=== PATIENT | female | born 1940 | race Caucasian/White ===

== ENCOUNTER 2017-06-12 10:09 | Day surgery (SDC) | payer MEDICARE ==
[2017-06-11 10:47] VITALS: BMI 36.6
[~2017-06-12 10:09] MED LIST: LACTATED RINGERS 1,000 ML IV SCH; LIDOCAINE 1% 20 ML VIAL (10MG/ML) FOR IV START INTRADERMA PRN
[2017-06-12 10:27] VITALS: RESP 18; TEMP 97.2
[2017-06-12] MEDS ORDERED: PROPOFOL 10 MG/ML 20 ML VIAL IV ONE (11:27)
--- NOTE | 2017-06-12 11:41 | P.PCN ---
Date of Procedure: 06/12/17 Procedure(s) Performed: BRIEF HISTORY: Patient is a 76-year-old pleasant female, scheduled for an elective colonoscopy as a part of screening for colorectal neoplasia. Her last colonoscopy was 10 years ago. PROCEDURE PERFORMED: Colonoscopy. PREOPERATIVE DIAGNOSIS: Screening for colon cancer. IV sedation per Anesthesia. PROCEDURE: After informed consent was obtained, the patient, was brought into the endoscopy unit. IV sedation was administered by Anesthesia under continuous monitoring. Digital rectal examination was normal. Initially the Olympus CF- 160 flexible video colonoscope was then inserted in the rectum, gradually advanced into the cecum without any difficulty. Careful examination was performed as the scope was gradually being withdrawn. Ileocecal valve and the appendiceal orifice were visualized and appeared normal. Prep was excellent. Mucosa of the cecum, ascending colon, transverse colon, descending colon, sigmoid colon, and rectum appeared normal. Retroflexion was performed in the rectum and no lesions were seen. The patient tolerated the procedure well. IMPRESSION: Normal-appearing colon from rectum to cecum with no evidence of colitis or colorectal neoplasia. RECOMMENDATIONS: Findings of this examination were discussed with the patient as well as a family. She was advised to have a repeat screening colonoscopy in 10 years based on her overall medical condition.
[2017-06-12 12:04] VITALS: BP 146/68; PULSE 84
== END 2017-06-12 12:43 | disposition home or self-care (01) ==
LOC: ORWHC2ENDO 10:09
PROVIDERS: ATTEND Internal Medicine Gastroenterology
DX: Z12.11 Encounter for screening for malignant neoplasm of colon (principal)
CPT/HCPCS: J2704; G0121; 45378

== ENCOUNTER → 2017-06-25 | Outpatient (CLI) | payer MEDICARE ==
--- NOTE | 2017-06-25 14:37 | MM ---
Reason for exam: additional evaluation requested from prior study. Last mammogram was performed 1 year and 1 month ago. History: Patient is postmenopausal and has history of breast cancer at age 61. Family history of breast cancer in aunt at age 38. Benign right US cyst aspiration of the right breast, January 22, 2010. Reconstruction of the right breast, June 2002. Malignant mastectomy of the right breast, October 07, 2001. Excisional biopsy of the right breast. Physical Findings: Nurse did not find any significant physical abnormalities on exam. MG 3D Diag Mammo W/Cad LT CC and MLO view(s) were taken of the left breast. Prior study comparison: May 27, 2016, left breast MG 3d diag mammo w/cad LT. July 10, 2014, left breast MG diagnostic mammo LT w CAD. There are scattered fibroglandular densities. No significant new findings when compared with previous films. These results were verbally communicated with the patient and result sheet given to the patient on 06/25/17. ASSESSMENT: Negative, BI-RAD 1 RECOMMENDATION: Follow-up diagnostic mammogram of the left breast in 1 year.
--- NOTE | 2017-06-25 16:39 | BD ---
EXAMINATION TYPE: MG DEXA axial skeleton. DATE OF EXAM: 06/25/2017 COMPARISON: 08.29.2005 CLINICAL HISTORY: 76-year-old FEMALE: Z85.3 BREAST CA, Z78.0 POST MENOPAUSE W/0 HRT Height: 63.3 Weight: 211 FRAX RISK QUESTIONS: Alcohol (3 or more units per day): NO Family History (Parent hip fracture): NO Glucocorticoids (More than 3mos): NO (Ex: prednisone, prednisolone, methylprednisolone, dexamethasone, and hydrocortisone). History of Fracture in Adulthood: YES Secondary Osteoporosis: NO 1. Type 1 Diabetes: NO 2. Hyperthyroidism: NO 3. Menopause before 45: NO 4. Malnutrition: NO 5. Chronic liver disease: NO Rheumatoid Arthritis: NO Current Tobacco Use: NO RISK FACTORS HISTORY OF: LT LEG AND ANKLE AT AGE 58 YRS OLD Surgery TO LT LEG AND ANKLE, LT TKR 2013 When: AT AGE 58 AND TKR 2013 Family History of Osteoporosis: NO Active: MEDIUM Diet low in dairy products/other sources of calcium: NO Postmenopausal woman: TOTAL HYST AT 56 YRS OLD Lost more than 2 inches in height since high school: YES Hyperparathyroidism: NO Adrenal Insufficiency: NO MEDICATIONS: Additional Medications: GLYCOSAMINE CHONDROITIN, CALCIUM WITH D, OSTERARTHRITIS Additional History: HX OF RT BREAST CANCER, MASTECTOMY EXAM MEASUREMENTS: Bone mineral densitometry was performed using the [employer] System. Bone mineral density as measured about the Lumbar spine is: ----- L1-L4(G/cm2): 1.443 T Score Values are as follows: ----- L1: 1.0 ----- L2: 2.4 ----- L3: 1.9 ----- L4: 3.1 ----- L1-L4: 2.2 Bone mineral density has: Increased 4.8% since study of: 09.08.2005 Bone mineral density about the R hip (g/cm2): 1.078 Bone mineral density about the L hip (g/cm2): 1.066 T Score values are as follows: -----R Neck: -0.4 -----L Neck: -0.4 -----R Total: 0.6 -----L Total: 0.5 Bone mineral density has: Decreased -8.4% since study of: 12.19.2005 FRAX%'S: THERE IS A 11.6% CHANCE OF MAJOR OSTEOPOROTIC FX AND A 1.1% FOR A HIP FX....PROBABILITY O F FX IN 10 YRS TIME IMPRESSION: Normal (Values between +1 and -1 indicate normal bone mass). Consider repeating this study in 5 year s or sooner if there is some new clinical indication. NOTE: T-SCORE=SD OF THE YOUNG ADULT MEAN.
== END | disposition home or self-care (01) ==
LOC: RADMAMWWP 13:36
PROVIDERS: ATTEND Internal Medicine
DX: Z08 Encounter for follow-up examination after completed treatment for malignant neoplasm (principal); Z85.3 Personal history of malignant neoplasm of breast; Z78.0 Asymptomatic menopausal state
CPT/HCPCS: 77080; G0206; G0279

== ENCOUNTER → 2018-07-01 | Outpatient (CLI) | payer MEDICARE ==
--- NOTE | 2018-07-02 07:40 | MM ---
Reason for exam: additional evaluation requested from prior study. Last mammogram was performed 1 year ago. History: Patient is postmenopausal and has history of breast cancer at age 61. Family history of breast cancer in aunt at age 38. Benign right US cyst aspiration of the right breast, January 22, 2010. Reconstruction of the right breast, June 2002. Malignant mastectomy of the right breast, October 07, 2001. Excisional biopsy of the right breast. Physical Findings: Nurse did not find any significant physical abnormalities on exam. MG 3D Diag Mammo W/Cad LT CC and MLO view(s) were taken of the left breast. Prior study comparison: June 25, 2017, left breast MG 3d diag mammo w/cad LT. May 27, 2016, left breast MG 3d diag mammo w/cad LT. The breast tissue is heterogeneously dense. This may lower the sensitivity of mammography. Finding: There are typically benign vascular calcifications in the left breast. There is no discrete abnormality. These results were verbally communicated with the patient and result sheet given to the patient on 07/01/18. ASSESSMENT: Incomplete: need additional imaging evaluation, BI-RAD 0 RECOMMENDATION: Ultrasound of the left breast. (palpable)
--- NOTE | 2018-07-02 07:44 | USB ---
Reason for exam: additional evaluation requested from abnormal screening. History: Patient is postmenopausal and has history of breast cancer at age 61. Family history of breast cancer in aunt at age 38. Benign right US cyst aspiration of the right breast, January 22, 2010. Reconstruction of the right breast, June 2002. Malignant mastectomy of the right breast, October 07, 2001. Excisional biopsy of the right breast. US Breast Limited LT Left limited breast ultrasound including focal area of concern, retroareolar and axilla demonstrates a 1.0 x 0.4 x 1.3cm oval, solid, hyperechoic lesion at 4 o'clock, suspect lipoma. No change from 2010. These results were verbally communicated with the patient and result sheet given to the patient on 07/01/18. ASSESSMENT: Benign, BI-RAD 2 RECOMMENDATION: Routine screening mammogram of the left breast in 1 year.
== END | disposition home or self-care (01) ==
LOC: RADMAMWWP 14:26
PROVIDERS: ATTEND Internal Medicine
DX: R92.8 Other abnormal and inconclusive findings on diagnostic imaging of breast (principal); Z90.11 Acquired absence of right breast and nipple; Z85.3 Personal history of malignant neoplasm of breast
CPT/HCPCS: 77065; 76642; G0279; 77061

== ENCOUNTER → 2018-08-16 | Outpatient (CLI) | payer MEDICARE ==
--- NOTE | 2018-08-16 15:09 | XR ---
EXAMINATION TYPE: XR bone survey complete DATE OF EXAM: 08/16/2018 COMPARISON: NONE HISTORY: Monoclonal gammopathy TECHNIQUE: Whole body bone survey was completed. FINDINGS: Chest: Surgical clip overlies the right hemidiaphragm. No focal consolidation, pleural effusion or pn eumothorax is seen. Cardiomediastinal silhouette is within normal limits. Osseous structures appear i ntact. Bony calvarium : 2 views of the bony calvarium demonstrate. Numerous small probable arachnoid granula tions are seen in addition to for larger lucent lesions measuring up to 4 mm on the frontal view. Spine: Two views of the cervical, thoracic and lumbar spines are submitted. There is grade 1 anterol isthesis of C4 on C5 and moderate to severe degenerative change throughout the cervical spine demonst rated as anterior osteophytes, intervertebral disc space narrowing, uncovertebral hypertrophy and end plate sclerosis. No suspicious osseous lesion is seen. The lumbar spine demonstrates a mild levoscoli otic curvature and moderate multilevel degenerative disc disease. There is grade 1 anterolisthesis of L3 on L4. Multilevel facet arthropathy is noted. The thoracic spine demonstrates mild multilevel deg enerative disc disease with no suspicious osseous lesion or malalignment. PELVIS: Single view of the pelvis demonstrates no suspicious osseous lesion. Mild femoral acetabular arthropathy and sacroiliac joint sclerosis are noted. UPPER EXTREMITIES: Two views of the upper extremities. No suspicious osseous lesion. LOWER EXTREMITIES: 2 views of the lower extremities. Extensive tricompartmental arthropathy is seen of the right knee with left knee arthroplasty. IMPRESSION: 4 lucent lesions within the calvarium that may represent lytic lesions of myeloma or prom inent arachnoid granulations. CT could further assess these findings. No other suspicious lesions are seen throughout the whole body bone survey. Degenerative disc disease and arthropathy as described a rupinder.
== END | disposition home or self-care (01) ==
LOC: RADXRMAIN 13:32
PROVIDERS: ATTEND Internal Medicine Hematology & Oncology
DX: D47.2 Monoclonal gammopathy (principal); M89.9 Disorder of bone, unspecified; M12.9 Arthropathy, unspecified
CPT/HCPCS: 77075

== ENCOUNTER → 2020-08-10 | Outpatient (CLI) | payer MEDICARE ==
--- NOTE | 2020-08-13 08:26 | MM ---
Reason for exam: additional evaluation requested from prior study. Last mammogram was performed 2 years and 1 month ago. History: Patient is postmenopausal and has history of breast cancer at age 61. Family history of breast cancer in aunt at age 38. Benign right US cyst aspiration of the right breast, January 22, 2010. Reconstruction of the right breast, June 2002. Malignant mastectomy of the right breast, October 07, 2001. Excisional biopsy of the right breast. Physical Findings: Nurse Summary: nodule in the left breast at 3 o'clock (nurse ms). MG 3D Diag Mammo W/Cad LT CC and MLO view(s) were taken of the left breast. Prior study comparison: July 01, 2018, left breast MG 3d diag mammo w/cad LT. June 25, 2017, left breast MG 3d diag mammo w/cad LT. There are scattered fibroglandular densities. No significant new findings when compared with previous films. These results were verbally communicated with the patient and result sheet given to the patient on 08/10/20. ASSESSMENT: Benign, BI-RAD 2 RECOMMENDATION: Follow-up diagnostic mammogram of the left breast in 1 year.
== END | disposition home or self-care (01) ==
LOC: RADMAMWWP 14:47
PROVIDERS: ATTEND Internal Medicine
DX: Z08 Encounter for follow-up examination after completed treatment for malignant neoplasm (principal); Z85.3 Personal history of malignant neoplasm of breast
CPT/HCPCS: 77065; G0279; 77061

== ENCOUNTER → 2022-09-29 | Outpatient (CLI) | payer MEDICARE ==
--- NOTE | 2022-09-30 08:30 | MM ---
Reason for Exam: Hx of breast cancer, mastectomy. Last mammogram was performed 2 year(s) and 2 month(s) ago. Patient History: Menarche at age 13. First Full-Term at age 23. Left ovary removed at age 60. Right ovary removed at age 60. Hysterectomy at age 60. Postmenopausal. Patient has history of breast feeding. Breast cancer, right, age 61. Excisional Biopsy on the Right side. 01/22/2010, Benign Cyst Aspiration on the right side. 10/07/2001, Malignant Mastectomy on the right side. 06/2002, Implant on the right side. Maternal aunt had breast cancer, age 38. Prior Study Comparison: 06/25/2017 Left Diagnostic Mammogram, [facility]. 07/01/2018 Left Diagnostic Mammogram, [facility]. 08/10/2020 Left Diagnostic Mammogram, [facility]. Tissue Density: Left: There are scattered fibroglandular densities. Findings: There is no suspicious group of microcalcifications or new suspicious mass. Benign calcifications within the left breast. Overall Assessment: Benign, BI-RAD 2 Management: Screening Mammogram of the left breast in 1 year. A clinical breast exam by your physician is recommended on an annual basis and results should be correlated with mammographic findings. Electronically signed and approved by: Peter Reeves D.O.
== END | disposition home or self-care (01) ==
LOC: RADMAMWWP 13:28
PROVIDERS: ATTEND Family Medicine
DX: Z12.31 Encounter for screening mammogram for malignant neoplasm of breast (principal); Z78.0 Asymptomatic menopausal state; Z80.3 Family history of malignant neoplasm of breast; Z85.3 Personal history of malignant neoplasm of breast
CPT/HCPCS: 77067

== ENCOUNTER → 2022-12-05 | Outpatient (CLI) | payer MEDICARE ==
--- NOTE | 2022-12-05 11:23 | CA ---
Stress Echo Report Candelaria Eden Age: 82 Gender: F : 1940 Exam Date: 12/05/2022 09:39 Exam Location: [facility] Ht (in): 65 Wt (lb): 210 Ordering Physician: Andrew Stoddard MD Referring Physician: Andrew Stoddard MD Data Processing Equipment Repairer: Rosie Bridges RDCS Technologist Procedure CPT: Indication: R06.02 SOB ICD-9 Codes: Rhythm: Patient History: No history of any symptoms Cardiac Medications: Vitamins, glucosamine Medications in past 24 hours: Contrast: Stress Results Protocol: Alfredo Total dose(mL): Exercise Duration (min:sec): Max ST Depression (mm): Angina Score: Gomez Score: METS: 2.8 Resting HR: 101 Resting BP: 153 / 80 Peak HR: 142 Peak BP: 227 / 102 Max Predicted HR: 140 101 % Max Predicted HR Target HR: 119 Double Product: [id number] Stress Summary: BP Response: Reason for Termination: Max HR Cardiac Symptoms: ECG Analysis Resting ECG: Stress ECG: Arrhythmia: Echo Analysis Resting Echo: Peak Echo Analysis: MEASUREMENTS (Male/Female) Normal Values CONCLUSIONS Limited functional capacity Normal EKG and echo in the response to exercise Dr. Mina Alarcon MD (Electronically Signed) Final Date: 05 December 2022 11:22
== END | disposition home or self-care (01) ==
LOC: RADNMMAIN 09:12
PROVIDERS: ATTEND Family Medicine
DX: Z01.818 Encounter for other preprocedural examination (principal); M16.12 Unilateral primary osteoarthritis, left hip; R06.02 Shortness of breath
CPT/HCPCS: 93351

== ENCOUNTER → 2022-12-18 | Outpatient (CLI) | payer MEDICARE ==
[2022-12-18 13:35] LABS: INR 0.9 (<1.2); Partial Thromboplastin Time 22.8 sec (22.0-30.0); Prothrombin Time 9.9 sec (9.0-12.0)
[2022-12-18 23:41] LABS: Appearance,Urine Turbid (Clear); Bacteria,Urine None Seen /HPF (None Seen); Bilirubin,Urine Negative (Negative); Blood,Urine Negative (Negative); Color,Urine Yellow (Yellow); Ketones,Urine Negative (Negative); Nitrite,Urine Negative (Negative); PH, Urine 5.5 (5.0-8.0); Urobilinogen,Urine 0.2 (0.2,1.0)
[2022-12-19 00:07] LABS: African American GFR (CKD) 96.4 (60.0-200.0); Albumin 4.3 g/dL (3.8-4.9); Albumin/Globulin Ratio 1.1 (1.60-3.17); Anion Gap 10.2 mmol/L (10.00-18.00); BUN/Creat Ratio 16.52 Ratio (12.00-20.00); Calcium 10.1 mg/dL (8.7-10.3); Carbon Dioxide 27.3 mmol/L (20.0-27.5); Globulin 3.9 g/dL (1.6-3.3); Non-African American GFR(CKD) 83.2 (60.0-200.0); Potassium 4.2 mmol/L (3.5-5.5); Total Bilirubin 0.5 mg/dL (0.30-1.20); Total Protein 8.3 g/dL (6.2-8.2)
[2022-12-19 01:30] LABS: HCT 39.6 % (37.2-46.3); HGB 12.3 g/dL (12.0-15.0); MCH 27.7 pg (27.0-32.0); MCHC 31.1 g/dL (32.0-37.0); MCV 89.2 fL (80.0-97.0); Mean Platelet Volume 10.9 fL (9.5-12.2); NRBC Per 100 WBC 0 /100 WBCS (0.0-0.0); Platelet Count 206 X 10*3/uL (140-440); RBC 4.44 X 10*6/uL (4.10-5.20); RDW 14.4 % (11.5-14.5); WBC 4.58 X 10*3/uL (4.50-10.00)
== END | disposition home or self-care (01) ==
LOC: LABPAT 11:59
PROVIDERS: ATTEND Orthopaedic Surgery
DX: Z01.812 Encounter for preprocedural laboratory examination (principal); M16.12 Unilateral primary osteoarthritis, left hip
CPT/HCPCS: 36415; 80053; 81001; 85027; 85610; 85730; 87070

== ENCOUNTER 2022-12-22 05:36 | Day surgery (SDC) | payer MEDICARE ==
[2022-12-18 10:17] VITALS: BMI 34.9
[~2022-12-22 05:36] MED LIST changes: +ACETAMINOPHEN TAB 500 MG TAB PO PRN; +GABAPENTIN 300 MG CAP PO PRN; -LACTATED RINGERS 1,000 ML IV SCH; -LIDOCAINE 1% 20 ML VIAL (10MG/ML) FOR IV START INTRADERMA PRN; +MELOXICAM 7.5 MG TAB PO PRN; +TRANEXAMIC ACID IN NACL,ISO-OS 1,000 MG in SALINE 1 100ML.BAG IVPB PRN
[2022-12-22] MEDS ORDERED: DEXAMETHASONE SOD PHOSPHATE 4 MG/ML 1 ML VIAL IV ONE (05:53)
[2022-12-22] MEDS ORDERED: ONDANSETRON 4 MG/2 ML VIAL IVP ONE (05:53)
[2022-12-22] MEDS ORDERED: MIDAZOLAM 2 MG/2 ML VIAL IV PRN (05:53)
[2022-12-22] MEDS: LACTATED RINGERS 1,000 ML IV SCH (06:24)
[2022-12-22] MEDS ORDERED: MIDAZOLAM 2 MG/2 ML VIAL IVP ONE (06:50)
[2022-12-22] MEDS ORDERED: MIDAZOLAM 2 MG/2 ML VIAL ONE (06:55)
[2022-12-22] MEDS ORDERED: fentaNYL (PF) 50 MCG/ML 2 ML AMP ONE (06:55)
[2022-12-22] MEDS ORDERED: PHENYLEPHRINE-0.9% NACL SYG 1,000 MCG/10 ML SYRINGE ONE (06:55)
[2022-12-22] MEDS ORDERED: ROPIVACAINE 5 MG/ML 30 ML VIAL ONE (06:55)
[2022-12-22] MEDS ORDERED: PROPOFOL 10 MG/ML 20 ML VIAL IV ONE (06:55)
[2022-12-22] MEDS ORDERED: ceFAZolin 1,000 MG in SODIUM CHLORIDE 0.9% 1,000 ML IRRIGATION ONE (06:59)
[2022-12-22] MEDS ORDERED: HYDROmorphone 0.5 MG/0.5 ML SYRINGE IVP PRN ×4 (07:00→08:33)
[2022-12-22] MEDS ORDERED: ROPIVACAINE 5 MG/ML 30 ML VIAL MISCELLANE ONE ×2 (07:24→08:00)
--- NOTE | 2022-12-22 08:07 | P.OP ---
Date of Procedure: 12/22/22 Preoperative Diagnosis: Severe osteoarthritis left hip Postoperative Diagnosis: Severe osteoarthritis left hip Procedure(s) Performed: Left total hip arthroplasty with a direct anterior approach Implants: [employer] Polarstem standard size 3 with a collar [employer] R3, 3 hole hemispherical acetabular shell, 52 mm [employer] Reflection 6.5 mm cancellus screw, 20 mm 2 [employer] R3, XLPE 20 acetabular liner [employer] Oxinium femoral head 36 m, +0 All components were press-fit. The articulation is Oxinium on polyethylene. Anesthesia: spinal Surgeon: Regino Sharma Site Technician #1: Kimberly Duong Estimated Blood Loss (ml): 350 Pathology: other (Femoral head) Condition: stable Disposition: PACU Indications for Procedure: After failure of conservative treatment we discussed the surgical and nonsurgical treatment options at length. Patient wishes to proceed with a total hip arthroplasty with a direct anterior approach. Complications specific to this procedure were discussed at length, including but not limited to infection, leg length discrepancy, dislocation, nerve injury, and fracture. Covid-19 was also discussed at length with the patient, and they are aware of the current sunny icies and procedures. The patient was given the option of delaying surgery, but they elect to proceed knowing these risks. Patient is aware of all these complications and informed consent was obtained Operative Findings: The operative findings are consistent with severe osteoarthritis of the left hip Description of Procedure: The patient was seen and evaluated in the preoperative area and the consent was reviewed. The operative site was marked with a skin marker. The patient verified the procedure and operative site. A SILVIA block was placed by anesthesia in the preoperative area. The patient was then brought to the operating room and given preoperative antibiotics intravenously. 1 g of Tranexamic acid was also given intravenously. A spinal anesthetic was administered by the anesthesia department. The patient was then placed on the [place] table with the bony prominences well-padded. The hip area was then prepped with a ChloraPrep solution and draped in the usual sterile fashion. A universal timeout was then performed, which confirmed the patient's name, surgical site, ALLERGIES, and procedure being performed on the consent. Next the incision site was located at 1 cm distal and 4 cm lateral to the anterior superior iliac spine. The skin and subcutaneous tissues were sharply incised. Incision was carefully dissected down to the fascia overlying the tensor fascia wilfrido muscle. This fascia was then incised in line with the muscle fibers. Care was taken to stay laterally in order to avoid injuring the lateral femoral cutaneous nerve. Next, using blunt finger dissection, the tensor fascia wilfrido muscle was dissected off its investing fascia. The muscle was then carefully retracted laterally with a cobra retractor over the lateral neck of the femur. Next, the circumflex vessels were identified and cauterized using the Aquamantis device. The anterior hip capsule was then exposed. The capsule was then opened and an inverted T fashion. The retractors were then placed intracapsularly. The retractors were maintained intracapsular throughout the procedure. The proximal femur was then visualized. Fluoroscopic x-rays were then taken in order to evaluate the preoperative leg lengths. A small amount of traction was placed on the leg. The femoral neck was then osteotomized at the appropriate level above the lesser trochanter. A small wedge of bone was then removed from the remaining femoral head. Next, using a corkscrew the femoral head was removed from the acetabulum. On gross visual inspection, the femoral head had complete loss of articular cartilage and multiple periarticular osteophytes. The femoral head was then measured. Attention was then turned to the acetabulum. The acetabulum was exposed and any remaining labrum was excised. Sequential reaming of the acetabulum was performed using fluoroscopic guidance until there was a good bed of bleeding cancellus bone. When the appropriate size was reached, a trial was then placed. The position and fit of the trial was checked with fluoroscopy. The trial was then removed. Then, using fluoroscopic guidance, the final implant was impacted at 20 of anteversion and 40 of abduction, and fully seated in the acetabulum. 2 screws were then placed in the acetabulum. Again fluoroscopy was used to check position of the screws. Next, the liner was then impacted, with a 20 elevated liner located in the anterior superior quadrant. Component locking was confirmed. Attention was then directed to the femur. With the aid of the [place] table, the femur was externally rotated to approximately 130, extended, and adducted under the opposite leg. A side hook was then placed under the proximal femur, and the side hook elevator was used to elevate the proximal femur while releasing the capsule. Retractors were then placed. A capsular release was performed, as well as a release of the conjoined tendon, which afforded excellent visualization of the proximal femur. Next, a box osteotome was used to lateralize the proximal femur. A pet handler was then used to locate the femoral canal. Sequential broaching was then performed with appropriate size which afforded excellent fixation in the proximal femur. A trial was then placed with appropriate head and neck, and the hip was gently reduced with the aid of the [place] table. Fluoroscopy was then used to check position of the components, as well as to evaluate the leg lengths and offset. The leg lengths and offset were measured as closely as possible to ensure stability of the hip. The hip was then gently dislocated and the trials were then removed. Final implants were then impacted and the hip was again reduced. Final fluoroscopic x-rays confirmed that the components were in anatomic position. The leg lengths and offset were measured and were found to coincide with the trial measurements. The hip was also taken through range of motion, and found to be stable. The hip was then copiously irrigated with antibiotic solution with pulsatile lavage. The hip was then irrigated with Irrisept solution. The soft tissues were then injected with a ropivacaine solution. A second dose of 1 g of Tranexamic acid was also given intravenously. The fascia was then closed with 2-0 strata fix suture. The subcutaneous tissue was closed with 3-0 Vicryl. The subcuticular tissue was closed with 3-0 strata fix suture. The skin was then closed with Exofin skin glue. After the glue and dried, and Optifoam silver impregnated dressing was applied. The patient was then transferred to the recovery room in stable condition. The chiropractic assistant GEETA Batres was required due to the complexity of surgery, and the need for skilled surgical nurse practitioner for positioning, draping, exposure, retraction, and closure of the wound.
[2022-12-22] MEDS ORDERED: LACTATED RINGERS 1,000 ML IV ONE (08:10)
[2022-12-22] MEDS ORDERED: NALOXONE 0.4 MG/ML 1 ML VIAL IV PRN (08:33)
[2022-12-22] MEDS ORDERED: MAGNESIUM HYDROXIDE 2,400 MG/10 ML CUP PO PRN (08:33)
[2022-12-22] MEDS ORDERED: ONDANSETRON 4 MG/2 ML VIAL IVP PRN (08:33)
[2022-12-22] MEDS ORDERED: HYDROcodone/APAP 7.5-325MG 1 EACH TAB PO PRN (08:35)
--- NOTE | 2022-12-22 09:05 | XR ---
EXAMINATION TYPE: XR Hip Limited LT DATE OF EXAM: 12/22/2022 COMPARISON: None HISTORY: Left hip prosthesis TECHNIQUE: AP left hip FINDINGS: Left hip prosthesis in place. Acetabular component is present. Postsurgical changes are wit hin the soft tissues. No acute osseous abnormality is evident. IMPRESSION: 1. No acute fractures. Left hip replacement
--- NOTE | 2022-12-22 09:08 | XR ---
Fluoroscopy INDICATION: Pain FINDINGS: Fluoroscopy time: 36 seconds. DAP: 2.0612 mGycm^2 Images obtained: 3. IMPRESSIONS: 1. Documentation of fluoroscopy.
[2022-12-22] MEDS ORDERED: SODIUM CHLORIDE 0.9% 1,000 ML IV ONE (11:56)
--- NOTE | 2022-12-22 13:24 | P.ANPRN ---
Procedure Note - Anesthesia - Nerve Block Performed Left Robert Single Time Out Performed: Yes ([id number]) Date of Procedure: 12/22/22 Procedure Start Time: 06:51 Procedure Stop Time: 06:57 Location of Patient: PreOp Indication: Acute Post-Operative Pain, Requested by Surgeon Specifically requested for management of pain by DrDarrell: Regino Sharma Sedation Type: Sedate with meaningful contact maintained Preparation: Sterile Prep Position: Supine Catheter: None Needle Types: Pajunk Needle Gauge: 21 Ultrasound used to visualize needle placement: Yes Ultrasound used to observe medication spread: Yes Injectate: 0.5% Ropivacaine (see comment for volume) (30cc) Blood Aspirated: No Pain Paresthesia on Injection Noted: No Resistance on Injection: Normal Image Stored and Saved: Yes Events: Uneventful and Well Tolerated
[2022-12-22] MEDS: ASPIRIN 325 MG TAB PO SCH ×2 (15:02→22:03)
--- NOTE | 2022-12-22 17:51 | P.CONS ---
History of Present Illness - Reason for Consult Consult date: 12/22/22 - History of Present Illness Patient is a 82-year-old female with no significant past medical history presenting for elective left total hip arthroplasty. [facility] [place] [facility] has been consulted for medical management. Currently patient denies any chest pain, shortness of breath, abdominal pain, nausea, vomiting, diarrhea, constipation, or urinary complaints. Currently she is afebrile, pulse 92, respiratory rate 16, blood pressure 141/69, saturating at 94% on room air. No recent labs available. Pertinent positives and negatives as discussed in HPI, a complete review of systems was performed and all other systems are negative. Patient seen and examined at bedside. Vital signs reviewed General: nontoxic, no distress, appears at stated age Derm: warm, dry, dressing dry, clean, and intact Head: atraumatic, normocephalic, symmetric Eyes: EOMI, no lid lag, anicteric sclera, pupils equal round reactive to light ENT: Nose and ears atraumatic Neck: No thyromegaly, supple Mouth: no lip lesion, mucus membranes moist Cardiovascular: S1S2 reg, no murmur, no edema Lungs: clear to auscultation bilateral, no rhonchi, no rales, no wheeze, no accessory muscle use Abdominal: soft, nontender to palpation, no guarding, no appreciable organomegaly Ext: no gross muscle atrophy, muscle strength muscle strength 5 out of 5 in all 4 extremities, no contractures Neuro: CN II-XII grossly intact Psych: Alert, oriented, appropriate affect Assessment/Plan: Hip Osteoarthritis status post left total hip arthroplasty -Currently on oral norco, and IV Dilaudid for pain control -Aspirin 325 twice a day for DVT prophylaxis -PT/OT -CBC and CMP ordered for tomorrow to monitor for any blood loss, and electrolytes following surgery Thank you for allowing us to participate in the care of this pleasant patient. Do not hesitate to contact us with questions. Someone can be reached from the [facility] [place] [facility] hospitalist group all hours of the day at [phone] or via [employer]. Past Medical History Past Medical History: Cancer Additional Past Medical History / Comment(s): BREAST CA 2001. History of Any Multi-Drug Resistant Organisms: None Reported Past Surgical History: Breast Surgery, Hysterectomy, Joint Replacement Additional Past Surgical History / Comment(s): lt knee replacement, bilateral mastectomy with reconstruction. plate in lt lower leg and ankle and rebuild ankle Past Anesthesia/Blood Transfusion Reactions: No Reported Reaction Past Psychological History: No Psychological Hx Reported Smoking Status: Never smoker Past Alcohol Use History: None Reported Past Drug Use History: None Reported - Past Family History Sister(s) Family Medical History: Cancer Daughter(s) Family Medical History: Cancer Mother Family Medical History: Cancer Additional Family Medical History / Comment(s): Mother lived till 99 years old, with hx throat cancer. Medications and Allergies Home Medications Medication Instructions Recorded Confirmed Type Co Q-10 (Unknown Dose) 1 tab PO DAILY 12/18/22 12/18/22 History Multivitamins, Thera [Multivitamin 1 tab PO DAILY 12/18/22 12/18/22 History (formulary)] [place]-3/Dha/Epa/Fish Oil [Fish Oil 1 each PO DAILY 12/18/22 12/18/22 History 1,000 mg Softgel] Vit C/E/Zn/Coppr/Lutein/Zeaxan 1 each PO DAILY 12/18/22 12/18/22 History [Preservision Areds 2 Softgel] Vitamin E (Unknown Dose) 1 tab PO DAILY 12/18/22 12/18/22 History Aspirin 325 mg PO BID #60 tab 12/22/22 Rx HYDROcodone/APAP 7.5-325MG [[place] 1 - 2 tab PO Q6H PRN #32 tab 12/22/22 Rx 7.5-325] Sennosides [Senokot] 2 tab PO DAILY PRN #60 tablet 12/22/22 Rx Allergies Allergy/AdvReac Type Severity Reaction Status Date / Time No Known Allergies Allergy Verified 12/22/22 05:56 Physical Exam Vitals: Vital Signs Temp Pulse Pulse Resp BP Pulse Ox 12/22/22 17:41 97.8 F 81 18 163/68 97 12/22/22 14:22 92 16 141/69 94 L 12/22/22 12:45 77 16 134/64 96 12/22/22 11:45 81 16 140/66 94 L 12/22/22 10:45 85 16 133/64 96 12/22/22 10:15 84 16 143/62 98 12/22/22 09:45 74 16 122/68 98 12/22/22 09:30 64 16 123/62 97 12/22/22 09:15 65 16 121/63 97 12/22/22 09:00 68 16 119/61 97 12/22/22 08:45 71 16 101/54 100 12/22/22 08:29 97 F L 81 16 101/53 98 12/22/22 07:00 85 16 98 12/22/22 05:57 98.3 F 94 16 168/79 96 Intake and Output 12/22/22 12/22/22 12/22/22 06:59 14:59 22:59 Intake Total 1051 1000 Output Total 350 Balance 1051 650 Intake: IV 1051 1000 Output: Estimated Blood Loss 350 Other: Weight 93.8 kg
[2022-12-22] MEDS: SODIUM CHLORIDE 0.9% 1,000 ML IV SCH ×2 (18:17→23:17)
[2022-12-22] MEDS ORDERED: SENNOSIDES-DOCUSATE SODIUM 1 EACH TAB PO SCH (21:00)
[2022-12-22] MEDS: HYDROcodone/APAP 7.5-325MG 1 EACH TAB PO PRN (22:03)
[2022-12-23 08:26] VITALS: BP 122/67; PULSE 97; TEMP 97.5
--- NOTE | 2022-12-23 08:37 | P.DS ---
Providers Expected date of discharge: 12/23/22 Attending physician: Regino Sharma Consults: 12/22/22 16:47 Consult Physician Routine Consulting Provider: Felicita Garcia Consult Reason/Comments: Medical management Do you want consulting provider notified?: Yes Primary care physician: Andrew Stoddard MD - Discharge Diagnosis(es) (1) Osteoarthritis of left hip Current Visit: Yes Status: Acute (2) S/P total hip arthroplasty Current Visit: Yes Status: Acute Hospital Course: This is a 82-year-old female with known history of degenerative arthritis of the left hip. The patient presented for evaluation as an outpatient. After discussion and consideration patient elects to proceed with total hip arthroplasty. The patient is seen preoperatively by Dr. Sharma and medically cleared for surgery by their primary care physician. Patient is admitted to [facility] on 12/22/2022 for total hip arthroplasty. The procedure is performed without complication or sequelae. The patient is doing well postoperatively. Labs and vital signs are stable on day of discharge. On day of discharge patient's hip incision is healing well. There is minimal erythema. There is no drainage noted at this time. There is minimal soft tissue swelling to the hip and thigh. Patient has full foot and ankle motion without difficulty or pain. Calf is soft and nontender to palpation. Neurovascular status to the left lower extremity is intact. Patient is discharged home in good condition. Please see med rec for accurate list of home medications. Plan - Discharge Summary Discharge Rx Participant: No New Discharge Prescriptions: New HYDROcodone/APAP 7.5-325MG [[place] 7.5-325] 1 - 2 tab PO Q6H PRN #32 tab PRN Reason: Pain Sennosides [Senokot] 2 tab PO DAILY PRN #60 tablet PRN Reason: Constipation Aspirin 325 mg PO BID #60 tab No Action Vit C/E/Zn/Coppr/Lutein/Zeaxan [Preservision Areds 2 Softgel] 1 each PO DAILY Vitamin E (Unknown Dose) 1 tab PO DAILY Multivitamins, Thera [Multivitamin (formulary)] 1 tab PO DAILY [place]-3/Dha/Epa/Fish Oil [Fish Oil 1,000 mg Softgel] 1 each PO DAILY Co Q-10 (Unknown Dose) 1 tab PO DAILY Discharge Medication List Co Q-10 (Unknown Dose) 1 tab PO DAILY 12/18/22 [History] Multivitamins, Thera [Multivitamin (formulary)] 1 tab PO DAILY 12/18/22 [History] [place]-3/Dha/Epa/Fish Oil [Fish Oil 1,000 mg Softgel] 1 each PO DAILY 12/18/22 [History] Vit C/E/Zn/Coppr/Lutein/Zeaxan [Preservision Areds 2 Softgel] 1 each PO DAILY 12/18/22 [History] Vitamin E (Unknown Dose) 1 tab PO DAILY 12/18/22 [History] Aspirin 325 mg PO BID #60 tab 12/22/22 [Rx] HYDROcodone/APAP 7.5-325MG [[place] 7.5-325] 1 - 2 tab PO Q6H PRN #32 tab 12/22/22 [Rx] Sennosides [Senokot] 2 tab PO DAILY PRN #60 tablet 12/22/22 [Rx] Follow up Appointment(s)/Referral(s): Regino Sharma DO [Doctor of Osteopathic Medicine] - 2 Weeks Activity/Diet/Wound Care/Special Instructions: Weightbearing as tolerated with walker. Leave dressing intact. Dressing may be removed by home care nurse or by patient in 7 days. Then change dressing twice daily until follow up. May shower with initial dressing intact and after removal. If dressing become saturated, please remove. Please take aspirin 325mg twice daily for 30 days to prevent blood clots. Recommend use of compression stockings daily until follow up to help prevent swelling and blood clots. May remove at night before sleeping. Please follow-up with [facility] in 2 weeks and call with any questions or concerns, . Discharge Disposition: HOME WITH HOME HEALTH SERVICES
[2022-12-23] MEDS: LACTATED RINGERS 1,000 ML IV SCH (08:52)
[2022-12-23] MEDS ORDERED: NON FORMULARY DRUG (Omega-3/Dha/Epa/Fish Oil [Fish Oil 1,000 Mg Softgel] 1 EACH Capsule) PO SCH (09:00)
[2022-12-23] MEDS ORDERED: MULTIVITAMINS, THERA 1 EACH TAB PO SCH (09:00)
[2022-12-23] MEDS: ASPIRIN 325 MG TAB PO SCH (10:16)
[2022-12-23] MEDS: HYDROcodone/APAP 7.5-325MG 1 EACH TAB PO PRN (10:16)
--- NOTE | 2022-12-23 10:37 | P.PN ---
Subjective Progress Note Date: 12/23/22 Subjective: Patient seen and examined at bedside. No acute events overnight. She has minimal pain and her left hip, but denies any other complaints. She is able to ambulate on her own. Pertinent positives and negatives as discussed above, a complete review of systems was performed and all other systems are negative. Vitals Signs Reviewed. General: nontoxic, no distress, appears at stated age Derm: warm, dry, dressing dry, clean, and intact Head: atraumatic, normocephalic, symmetric Eyes: EOMI, no lid lag, anicteric sclera, pupils equal round reactive to light ENT: Nose and ears atraumatic Neck: No thyromegaly, supple Mouth: no lip lesion, mucus membranes moist Cardiovascular: S1S2 reg, no murmur, no edema Lungs: clear to auscultation bilateral, no rhonchi, no rales, no wheeze, no accessory muscle use Abdominal: soft, nontender to palpation, no guarding, no appreciable organomegaly Ext: no gross muscle atrophy, muscle strength muscle strength 5 out of 5 in all 4 extremities, no contractures Neuro: CN II-XII grossly intact Psych: Alert, oriented, appropriate affect Data Reviewed Today: Temperature this morning was 97.5, blood pressure 122/67, saturating at 97% on room air, respiratory rate 17, pulse 97 CBC and CMP pending, will be reviewed when available Assessment and Plan: Hip Osteoarthritis status post left total hip arthroplasty -Currently on oral norco, and IV Dilaudid for pain control -Aspirin 325 twice a day for DVT prophylaxis -PT/OT Patient is otherwise medically optimized for discharge home. Thank you for allowing us to participate in the care of this pleasant patient. Do not hesitate to contact us with questions. Someone can be reached from the [facility] hospitalist group all hours of the day at [phone] or via [employer]. Objective - Vital Signs Vital signs: Vital Signs Temp 97.5 F L 12/23/22 08:10 Pulse 97 12/23/22 08:10 Resp 17 12/23/22 08:10 BP 122/67 12/23/22 08:10 Pulse Ox 97 12/23/22 08:10 FiO2 Intake & Output 12/22/22 12/23/22 12/23/22 18:59 06:59 18:59 Intake Total 1000 Output Total 350 Balance 650 Weight 93.8 kg Intake: IV 1000 Output: Estimated Blood Loss 350 Other: Voiding Method Toilet # Voids 1 2
[2022-12-23 11:00] VITALS: RESP 16
[2022-12-23 11:17] LABS: Basophils # (A) 0.01 X 10*3/uL (0.00-0.10); Basophils % (A) 0.2 %; Eosinophils # (A) 0.01 X 10*3/uL (0.04-0.35); Eosinophils % (A) 0.2 %; HCT 27.9 % (37.2-46.3); HGB 9.2 g/dL (12.0-15.0); Immature Grans, Automated 0.8 %; Lymphocytes % (A) 16.1 %; MCH 28.1 pg (27.0-32.0); MCV 85.3 fL (80.0-97.0); Mean Platelet Volume 10.2 fL (9.5-12.2); Monocytes # (A) 0.89 X 10*3/uL (0.20-1.00); Monocytes % (A) 17.9 %; NRBC Per 100 WBC 0 /100 WBCS (0.0-0.0); Neutrophils # (A) 3.22 X 10*3/uL (1.80-7.70); Neutrophils % (A) 64.8 %; Platelet Count 172 X 10*3/uL (140-440); RBC 3.27 X 10*6/uL (4.10-5.20); RDW 13.7 % (11.5-14.5); WBC 4.97 X 10*3/uL (4.50-10.00)
[2022-12-23 11:21] LABS: African American GFR (CKD) 99.8 (60.0-200.0); Albumin 3.3 g/dL (3.8-4.9); Albumin/Globulin Ratio 1.14 (1.60-3.17); BUN/Creat Ratio 19.67 Ratio (12.00-20.00); Blood Urea Nitrogen 11.8 mg/dL (9.0-27.0); Calcium 9.1 mg/dL (8.7-10.3); Globulin 2.9 g/dL (1.6-3.3); Non-African American GFR(CKD) 86.1 (60.0-200.0); Potassium 3.8 mmol/L (3.5-5.5); Total Bilirubin 0.4 mg/dL (0.30-1.20); Total Protein 6.2 g/dL (6.2-8.2)
== END 2022-12-23 13:07 | disposition home health service (06) ==
LOC: OR 05:36 → 4SSUR 08:24 → OR 12-23 13:07
PROVIDERS: ATTEND Orthopaedic Surgery
DX: M16.12 Unilateral primary osteoarthritis, left hip (principal); G89.18 Other acute postprocedural pain; Z85.3 Personal history of malignant neoplasm of breast; Z80.8 Family history of malignant neoplasm of other organs or systems; Z90.710 Acquired absence of both cervix and uterus; Z98.82 Breast implant status; Z98.890 Other specified postprocedural states; Z79.82 Long term (current) use of aspirin; Z79.899 Other long term (current) drug therapy
CPT/HCPCS: 97161; 97165; 64447; 76942; 86900; 86901; 80053; 85025; 86850; 73501; 27130; C1776; J2250; J1100; J0690 ×2; J2405; J2795

== ENCOUNTER → 2023-09-09 | Outpatient (CLI) | payer MEDICARE ==
[2023-09-09 18:37] LABS: Protein, Total 8.6 g/dL (6.2-8.2)
[2023-09-09 18:39] LABS: Albumin 4.4 g/dL (3.8-4.9)
[2023-09-10 14:35] LABS: Free Lambda Lt Chain Qnt, Seru 2.45 mg/dL (0.57-2.63)
[2023-09-10 17:59] LABS: Gamma Globulin 2.15 g/dL (0.70-1.50)
== END | disposition home or self-care (01) ==
LOC: LABWHC1 12:45
PROVIDERS: ATTEND Family Medicine
DX: R77.1 Abnormality of globulin (principal)
CPT/HCPCS: 36415; 83883; 84155; 84165; 86334

== ENCOUNTER → 2023-10-06 | Outpatient (CLI) | payer MEDICARE ==
--- NOTE | 2023-10-06 16:06 | MM ---
Reason for Exam: Screening (asymptomatic). Last screening mammogram was performed 12 month(s) ago. Patient History: Menarche at age 13. First Full-Term at age 23. Left ovary removed at age 60. Right ovary removed at age 60. Hysterectomy at age 60. Postmenopausal. Patient has history of breast feeding. Breast cancer, right, age 61. Excisional Biopsy on the Right side. 01/22/2010, Benign Cyst Aspiration on the right side. 10/07/2001, Malignant Mastectomy on the right side. 06/2002, Implant on the right side. Maternal aunt had breast cancer, age 38. Sister had ovarian cancer, age 60. Prior Study Comparison: 07/01/2018 Left Diagnostic Mammogram, [facility]. 08/10/2020 Left Diagnostic Mammogram, [facility]. 09/29/2022 Left MG 3D scr stoney unilateral w/cad., [facility]. Tissue Density: Left: There are scattered fibroglandular densities. Findings: Analyzed By CAD. There is no suspicious group of microcalcifications or new suspicious mass. Overall Assessment: Negative, BI-RAD 1 Management: Screening Mammogram of both breasts in [address] [facility] will attempt to contact patient to return for supplemental views and ultrasound if indicated. Patient should continue monthly self-breast exams. A clinical breast exam by your physician is recommended on an annual basis. This exam should not preclude additional follow-up of suspicious palpable abnormalities. Note on Nemo scores and lifetime risk: 1. A Nemo score greater than 3% is considered moderate risk. If this is the case, consider specialist referral to assess eligibility for a risk reducing agent. 2. If overall lifetime risk for the development of breast cancer is 20% or higher, the patient may qualify for future screening with alternating mammogram and breast MRI. Electronically signed and approved by: Mahesh Carrillo DO
== END | disposition home or self-care (01) ==
LOC: RADMAMWWP 15:02
PROVIDERS: ATTEND Family Medicine
DX: Z12.31 Encounter for screening mammogram for malignant neoplasm of breast (principal); Z80.3 Family history of malignant neoplasm of breast; Z78.0 Asymptomatic menopausal state; Z90.11 Acquired absence of right breast and nipple; Z98.82 Breast implant status
CPT/HCPCS: 77067

== ENCOUNTER → 2024-05-20 | Outpatient (CLI) | payer MEDICARE ==
--- NOTE | 2024-05-20 13:40 | US ---
EXAMINATION TYPE: US venous doppler duplex UE LT DATE OF EXAM: 05/20/2024 COMPARISON: NONE CLINICAL INDICATION: Female, 83 years old with history of DVT - UPPER LEFT; Hand swelling x 1 week; B reast cancer with right mastectomy 1998 SIDE PERFORMED: Left Grayscale, color doppler, spectral doppler imaging performed of the deep veins of the upper extremiti es. There is normal flow, compressibility and vascular waveforms. Left Arm: Negative for DVT IMPRESSION: No evidence for DVT within the left upper extremity.
== END | disposition home or self-care (01) ==
LOC: RADUSWWP 12:02
PROVIDERS: ATTEND Internal Medicine

== ENCOUNTER → 2024-05-27 | Outpatient (CLI) | payer MEDICARE ==
[2024-06-02 18:25] LABS: ANA Pattern Speckled
== END | disposition home or self-care (01) ==
LOC: LABWHC1 11:56
PROVIDERS: ATTEND Internal Medicine
DX: R60.0 Localized edema (principal)
CPT/HCPCS: 36415; 85652; 86038; 86039; 86140

== ENCOUNTER → 2024-05-30 | Outpatient (CLI) | payer MEDICARE ==
--- NOTE | 2024-05-30 14:27 | XR ---
EXAMINATION TYPE: XR wrist complete LT, XR hand complete LT DATE OF EXAM: 05/30/2024 CLINICAL HISTORY: pain TECHNIQUE: Frontal, lateral and oblique images of the left hand and wrist are obtained. COMPARISON: None. FINDINGS: There is no acute fracture/dislocation evident. The joint spaces appear moderately narrowe d involving various DIP and PIP joints. Severe narrowing of the first carpal metacarpal joint space w ith chronic bony fragmentation seen. The overlying soft tissue appears unremarkable. IMPRESSION: There is no acute fracture or dislocation. ICD 10 NO FRACTURE, INITIAL EVALUATION
== END | disposition home or self-care (01) ==
LOC: RADXRMAIN 13:46
PROVIDERS: ATTEND Internal Medicine
DX: M25.532 Pain in left wrist (principal); M25.542 Pain in joints of left hand

== ENCOUNTER → 2024-11-28 | Outpatient (CLI) | payer MEDICARE ==
[2024-11-28 12:21] LABS: INR 0.9 (<1.2); Partial Thromboplastin Time 22.3 sec (22.0-30.0); Prothrombin Time 10.5 sec (10.0-12.5)
[2024-11-28 15:20] LABS: HCT 38.6 % (37.2-46.3); MCH 28.3 pg (27.0-32.0); MCHC 33.7 g/dL (32.0-37.0); MCV 84.1 FL (80.0-97.0); Mean Platelet Volume 10.7 FL (9.5-12.2); NRBC Per 100 WBC 0 X 10*3/uL (0.00-0.01); Platelet Count 224 X 10*3/uL (140-440); RBC 4.59 X 10*6/uL (4.10-5.20); RDW 14.6 % (11.5-14.5); WBC 3.26 X 10*3/uL (4.50-10.00)
[2024-11-28 15:29] LABS: ALT 17 U/L (8-44); AST 23 U/L (13-35); Albumin 4.1 g/dL (3.8-4.9); Albumin/Globulin Ratio 1.08 Ratio (1.60-3.17); Alkaline Phosphatase 61 U/L (41-126); BUN/Creat Ratio 17.86 Ratio (12.00-20.00); Blood Urea Nitrogen 12.5 mg/dL (9.0-27.0); Calcium 9.9 mg/dL (8.7-10.3); Carbon Dioxide 27.2 mmol/L (21.6-31.8); Chloride 102 mmol/L (96-109); Globulin 3.8 g/dL (1.6-3.3); Glucose 98 mg/dL (70-110); Potassium 4.4 mmol/L (3.5-5.5); Sodium 140 mmol/L (135-145); Total Bilirubin 0.5 mg/dL (0.3-1.2); Total Protein 7.9 g/dL (6.2-8.2)
== END | disposition home or self-care (01) ==
LOC: LABPAT 11:17
PROVIDERS: ATTEND Orthopaedic Surgery
DX: Z01.818 Encounter for other preprocedural examination (principal); Z22.322 Carrier or suspected carrier of Methicillin resistant Staphylococcus aureus; M17.11 Unilateral primary osteoarthritis, right knee
CPT/HCPCS: 36415; 80053; 85027; 85610; 85730; 87070; 93005

== ENCOUNTER 2024-12-26 05:37 | Day surgery (SDC) | payer MEDICARE ==
[2024-12-23 09:58] VITALS: BMI 34.2
[~2024-12-26 05:37] MED LIST changes: -ACETAMINOPHEN TAB 500 MG TAB PO PRN; -MELOXICAM 7.5 MG TAB PO PRN; +TRANEXAMIC 1,000 MG/100ML-NACL 1,000 MG in SALINE 1 100ML.BAG IVPB PRN; -TRANEXAMIC ACID IN NACL,ISO-OS 1,000 MG in SALINE 1 100ML.BAG IVPB PRN
[2024-12-26] MEDS: IV FLUID CONTINUATION 1,000 ML IV ONE (05:59)
[2024-12-26] MEDS: ACETAMINOPHEN TAB 500 MG TAB PO PRN (06:10)
[2024-12-26] MEDS: MELOXICAM 7.5 MG TAB PO PRN (06:10)
[2024-12-26] MEDS: ONDANSETRON 4 MG/2 ML VIAL IVP ONE (06:13)
[2024-12-26] MEDS: DEXAMETHASONE SOD PHOSPHATE 4 MG/ML 1 ML VIAL IV ONE (06:13)
[2024-12-26] MEDS: LACTATED RINGERS 1,000 ML IV SCH (06:15)
[2024-12-26] MEDS: MIDAZOLAM 2 MG/2 ML VIAL IV PRN (06:23)
[2024-12-26] MEDS ORDERED: MIDAZOLAM 2 MG/2 ML VIAL ONE (06:53)
[2024-12-26] MEDS ORDERED: PROPOFOL 10 MG/ML 20 ML VIAL IV ONE (06:53)
[2024-12-26] MEDS ORDERED: ROPIVACAINE 5 MG/ML 30 ML VIAL ONE (06:53)
[2024-12-26] MEDS ORDERED: DEXAMETHASONE SOD PHOSPHATE 4 MG/ML 1 ML VIAL ONE (06:53)
[2024-12-26] MEDS ORDERED: fentaNYL (PF) 50 MCG/ML 2 ML AMP ONE (06:53)
[2024-12-26] MEDS ORDERED: PHENYLEPHRINE-0.9% NACL SYG 1,000 MCG/10 ML SYRINGE ONE (06:53)
[2024-12-26] MEDS ORDERED: LIDOCAINE 1% INJ 10MG/ML (20 ML MDV) ONE (06:53)
[2024-12-26] MEDS: ceFAZolin 2 GM in DEXTROSE 5% IN WATER 50 ML IVPB PRN (06:57)
[2024-12-26] MEDS ORDERED: HYDROmorphone 0.5 MG/0.5 ML SYRINGE IVP PRN ×4 (07:00→08:43)
[2024-12-26] MEDS: ceFAZolin 1,000 MG in SODIUM CHLORIDE 0.9% 1,000 ML IRRIGATION ONE (07:23)
--- NOTE | 2024-12-26 07:24 | P.ANPRN ---
Procedure Note - Anesthesia - Nerve Block Performed Right iPack Single Time Out Performed: Yes Date of Procedure: 12/26/24 Procedure Start Time: : Procedure Stop Time: : Location of Patient: PreOp Indication: Acute Post-Operative Pain, Analgesia, Requested by Surgeon Sedation Type: Sedate with meaningful contact maintained Preparation: Sterile Prep Position: Left Lateral Catheter: None Needle Types: Pajunk Needle Gauge: 21 Ultrasound used to visualize needle placement: Yes Ultrasound used to observe medication spread: Yes Injectate: 0.5% Ropivacaine (see comment for volume) ([id number]) Blood Aspirated: No Pain Paresthesia on Injection Noted: No Resistance on Injection: Normal Image Stored and Saved: Yes Events: Uneventful and Well Tolerated
--- NOTE | 2024-12-26 07:26 | P.ANPRN ---
Procedure Note - Anesthesia - Nerve Block Performed Right Adductor Canal Infusion Time Out Performed: Yes Date of Procedure: 12/26/24 Procedure Start Time: : Procedure Stop Time: 06:33 Location of Patient: PreOp Indication: Acute Post-Operative Pain, Analgesia, Requested by Surgeon Sedation Type: Sedate with meaningful contact maintained Preparation: Sterile Prep Position: Supine Catheter: Indwelling Needle Types: On-Q Ultrasound used to visualize needle placement: Yes Ultrasound used to observe medication spread: Yes Injectate: 0.5% Ropivacaine (see comment for volume) ([id number]) Blood Aspirated: No Pain Paresthesia on Injection Noted: No Resistance on Injection: Normal Image Stored and Saved: Yes Events: Uneventful and Well Tolerated
--- NOTE | 2024-12-26 08:06 | P.OP ---
Date of Procedure: 12/26/24 Preoperative Diagnosis: Severe osteoarthritis, right knee Postoperative Diagnosis: Severe osteoarthritis, right knee Procedure(s) Performed: Right total knee arthroplasty Implants: [employer] Journey II CR Oxinium cruciate retaining femoral component size 6, right [employer] Journey nonporous tibial baseplate size 5, right [employer] Journey II, XLPE Deep Dished articular insert, size 9 mm, Size 5- 6, right [employer] Journey Dari II resurfacing patellar component, oval, 32 mm All components were cemented using [place] R bone cement The articulation is Oxinium on polyethylene Anesthesia: spinal Surgeon: Regino Sharma Full Service Supervisor #1: Kimberly Duong Estimated Blood Loss (ml): 40 Pathology: none sent Condition: stable Disposition: PACU Indications for Procedure: The patient's knee is end-stage, and conservative management has failed. The operation of knee replacement has been discussed at length in the office, as well as potential risks and complications. These are inclusive of, but not limited to: Infection, bleeding, scarring, discomfort, stiffness, blood vessel and nerve damage, need for further surgery, failure to relieve symptoms, persistence, recurrence, or worsening of problems, loosening, dislocation, wear, blood clot, pulmonary embolism, , gait dysfunction, stiffness, and other risks as discussed in the office. Patient elects to proceed and the consent form has been signed. Operative Findings: The operative findings are consistent with severe osteoarthritis of the right knee Description of Procedure: The patient was seen in the preoperative area, the consent was reviewed and the operative site was marked with a skin marker. The patient verified the procedure and the operative site. An adductor canal pain catheter and an iPACK block were placed by anesthesia in the preoperative area. The patient was then brought to the operating room and positioned on the operating room table in the supine position. Preoperative antibiotics and a gram of tranexamic acid were given intravenously. A spinal anesthetic was administered by the anesthesia department. Care was taken to make sure that all pressure points were adequately padded. A tourniquet was placed on the upper thigh and the lower extremity was prepped with ChloraPrep and draped in usual sterile fashion. A universal time-out was then performed which confirmed the patient's name, surgical site, ALLERGIES, and consent. The lower extremity was then exsanguinated and tourniquet was inflated to 250 mmHg. A standard anterior midline approach to the knee was performed. The skin and subcutaneous tissue were sharply dissected down to the patellar tendon. A medial parapatellar arthrotomy was then performed. The knee was then extended, the patellar was everted, and the knee was flexed. The infra-patellar fat pad was removed in order to enhance exposure. The anterior horns of both menisci were excised, and a release was performed to the posterior medial aspect of the knee. On gross visual inspection, there was complete loss of articular cartilage in the medial and patellofemoral joint spaces. There was also significant cartilage damage in the lateral compartment. There were multiple periarticular osteophytes globally about the knee which were then removed with a Ronguer. The femoral canal was then opened with the 9.5 mm intramedullary drill. The 8 mm intramedullary flip was then inserted into the femoral canal with the distal femoral cutting guide set for 5 of valgus. The distal femoral cutting block was then pinned in place. The intramedullary flip was then removed, and the distal femur was then cut. The cutting block was then removed and the cut was checked for symmetry. The resected bone was then measured to confirm the appropriate distal femoral resection. Next, the sizing guide was then placed and set for 3 external rotation based off of the epicondylar axis and [place]'s line. Pins were then placed and the drill holes, and the femur was sized with the sizing stylus. The pins were then removed, and the sizing guide was then removed. The spikes of the appropriate size femoral block was then placed into the predrilled holes, and malleted into place. Two 45 mm pins were then placed into the fixation holes on the cutting block. An rachel wing was then used to ensure there would be no notching with the anterior cut. The anterior condyles were cut without notching. The anterior chord cut was then performed, followed by the posterior cut, posterior chamfer cut, and the anterior chamfer cut. The collateral ligaments were protected during the entire process. The cutting block was then removed. Any remaining bone and osteophytes were removed from the femur with a Ronguer. Attention was then directed to the tibia. The remaining ACL was removed with a Ronguer, and the tibia was then gently subluxed forward with a large bent knee retractor. Any remaining menisci were excised. The posterior lateral corner was cauterized in order to coagulate the lateral geniculate artery. The extra medullary tibial cutting guide was then placed, set for the appropriate rotation, slope, and depth of resection. The proximal tibia cutting guide was then pinned in place. Proximal tibia was then cut and sized. A curved osteotome was then used to remove any posterior osteophytes from the distal femur. The femoral trial was placed. A narrow saw blade was then used to remove the anterior intracondylar femoral bone. The CR notch trial was then placed. The tibial trial was placed with the appropriate-sized insert. The knee was able to fully extend and flex to 130 and was stable throughout all range of motion. The knee was then extended and the patella was everted. Patella was then measured, and then using an osteotomy guide, the patella was cut at the appropriate level. The patellar component was sized. The patellar drill guide was placed and the patella was drilled. The patella trial was then placed. The knee was then taken through range of motion with the patella trial and the patella tracked normally using the no thumbs technique. The patella trial was then removed. The knee was then flexed and lug holes were drilled through the femoral trial and the femoral trial was then removed. The tibial was then re- exposed, and the tibial broach guide was then pinned in place after it was set for the appropriate rotation to allow for the most coverage without overhang. The tibia was then reamed and broached. The femoral canal was plugged with autologous bone. The cut surfaces of bone were then irrigated with pulsatile lavage. The knee was also irrigated with Irrisept solution. The components were then opened, the cement was mixed. Cement was placed on the backside of the femoral, tibial, and patellar components. Cement was then applied to the tibial surface and pressurized into the surface using finger pressurization technique. The tibial component was then applied and excess cement was removed after it was impacted securely noted to be flush with the cut surface. In similar fashion, the cement was applied to the cut femoral surface, pressurized and using finger pressurization the component was impacted in place. Excess cement was removed. The polyethylene spacer was then implanted and locked into position. Patellar component was then applied in a similar technique and the patellar clamp was used to hold patella in place while the cement hardened. The knee was held in full extension while the cement hardened. Once the cement had fully hardened, the knee was reinspected. Any other cement extrusion was removed the final range of motion testing showed range of motion from 0-130 with excellent stability, both medial and laterally and appropriate alignment of the leg. Patella tracked normally. After the cemented hardened, the tourniquet was released and hemostasis was obtained. A second gram of transexamic acid was given intravenously. The knee was again irrigated. The knee was again taken through range of motion and found to be stable throughout all range of motion of 0-130, and the patella tracked normally. The fascia was then closed with 0 Vicryl followed by #2 strata fix suture. The subcutaneous tissue was closed with 3-0 Vicryl and 3-0 monocryl. Exofin glue was used for the skin and placed with the knee in flexion. After the glue had dried, and Optafoam silver impregnated dressing was applied. A lightly compressive dressing was applied using web roll and Julius wrap. Patient was then transferred to the stretcher and taken to recovery room in stable condition. Sponge and needle counts were correct. The cafeteria assistant GEETA Batres was required due the complexity surgery and the need for a skilled surgical endoscopist. She assisted in positioning, draping, retraction, and closure of the wound.
[2024-12-26] MEDS: ROPIVACAINE 1,100 MG, SODIUM CHLORIDE 0.9% 500 ML 330 ML, EMPTY PAIN BALL 1 EACH MISCELLANE PRN (08:42)
[2024-12-26] MEDS ORDERED: NALOXONE 0.4 MG/ML 1 ML VIAL IV PRN (08:43)
[2024-12-26] MEDS ORDERED: NA PHOS,M-B/NA PHOS,DI-BA 133 ML ENEMA RECTAL PRN (08:43)
[2024-12-26] MEDS ORDERED: bisacodyL 10 MG SUPP RECTAL PRN (08:43)
[2024-12-26] MEDS ORDERED: MAGNESIUM HYDROXIDE 2,400 MG/30 ML CUP PO PRN (08:43)
[2024-12-26] MEDS ORDERED: ONDANSETRON 4 MG/2 ML VIAL IVP PRN (08:43)
[2024-12-26] MEDS ORDERED: HYDROcodone/APAP 7.5-325MG 1 EACH TAB PO PRN (08:46)
--- NOTE | 2024-12-26 09:49 | XR ---
EXAMINATION TYPE: XR knee limited RT DATE OF EXAM: 12/26/2024 CLINICAL INDICATION: Female, 84 years old with history of Evaluation for Postop abnormality and align ment, knee pain and arthritis status post total knee replacement.pain TECHNIQUE: Portable AP and crosstable lateral views of the right knee are obtained immediately post operatively. COMPARISON: None FINDINGS: Metallic hardware from total right knee arthroplasty is seen and appears satisfactory in alignment and position. There is evidence of recent surgery with diffuse subcutaneous gas and soft t issue swelling noted. IMPRESSION: METALLIC HARDWARE FROM TOTAL right KNEE ARTHROPLASTY IS SATISFACTORY IN ALIGNMENT. [facility], , 12/26/2024 9:47 AM
[2024-12-26] MEDS: SODIUM CHLORIDE 0.9% 1,000 ML IV ONE (11:21)
[2024-12-26] MEDS: SODIUM CHLORIDE 0.9% 1,000 ML IV SCH (11:23)
[2024-12-26] MEDS: ceFAZolin 2 GM in DEXTROSE 5% IN WATER 50 ML IVPB SCH (16:45)
--- NOTE | 2024-12-26 18:14 | P.CONS ---
History of Present Illness - Reason for Consult Consult date: 12/26/24 Medical management - History of Present Illness History of present illness; 84-year-old female with PMH of right breast cancer s/p mastectomy and reconstruction in 2001, total left knee arthroplasty in 2013 and left hip arth roplasty in 2022 presents to the hospital for elective total right knee arthroplasty. We have been consulted for medical management. Patient reports absence of fever, chills, weight loss, chest pain, palpitations, diaphoresis, dyspnea, cough, nausea, vomiting, constipation, diarrhea, abdominal pain, weakness, myalgia, dizziness, headache, and dysuria. Internal medicine was consulted for medical management. Initial lab workup on 11/28/2024 revealed WBCs 3.26, hemoglobin 13.0, hematocrit 38.6, platelet 224; sodium 140, potassium 4.4, BUN 12.5, creatinine 0.87, calcium 9.9, total bilirubin 0.5, AST 23, ALT 17, alkaline phosphatase 61 EKG done on 11/28/2024 showed a rate of 81, with normal sinus rhythm and a QTc of 432 Right knee x-ray postoperatively showed metallic hardware from total right knee arthroplasty is satisfactory in its alignment REVIEW OF SYSTEMS: All systems reviewed, pertinent positives and negatives noted in HPI. All other symptoms are negative. PHYSICAL EXAMINATION: Vitals reviewed GENERAL: No acute distress. Well developed, well nourished. HEENT: Pupils are round and equally reacting to light. EOMI. No scleral icterus. Normocephalic, atraumatic. No pharyngeal erythema. No thyromegaly. CARDIOVASCULAR: S1 and S2 present. No murmurs, rubs, or gallops. PULMONARY: Chest is clear to auscultation, no wheezing, rhonchi, or crackles. ABDOMEN: Soft, nontender, nondistended, normoactive bowel sounds. No palpable organomegaly. MUSCULOSKELETAL: No apparent joint swelling and deformities. Vertical bandage covering incision on the right knee dry without erythema or drainage. EXTREMITIES: No apparent cyanosis, clubbing, or pedal edema. NEUROLOGICAL: The patient is alert and oriented x3, Gross neurological examination did not reveal any focal deficits. 5/5 strength bilateral UE and LE. SKIN: No apparent rashes. Assessment and plan 84-year-old female with PMH of breast cancer presents to the hospital for elective total right knee arthroplasty. We have been consulted for medical management. #Hypertension, likely secondary to pain -Control pain -Monitor vital signs -Continue outpatient follow-up to rule out essential primary hypertension No known chronic Medical Conditions #Total right knee arthroplasty -Pain management and DVT prophylaxis per primary surgical team F: LR at 20 cc/h E: Replete as needed N: Clear liquid advancing to regular DVT ppx: per primary surgical team Code status: Full code Patient is stable from medical stand point Follow up CBC and CMP in AM Dictation was produced using [employer] dictation software. Please excuse any grammatical, word or spelling errors. Keven French MD PGY-1 IM I saw and evaluated the patient during the garcia and critical portions of this encounter, and discussed the case in detail with the resident author of this note, I agree with the Assessment and Plan, and my changes, if any, are highlighted in blue. Past Medical History Past Medical History: Cancer, Osteoarthritis (OA) Additional Past Medical History / Comment(s): HX RIGHT BREAST CANCER IN 2001 WITH MASTECTOMY, NO CHEMO OR RADIATION. History of Any Multi-Drug Resistant Organisms: None Reported Past Surgical History: Breast Surgery, Hysterectomy, Joint Replacement, Orthopedic Surgery Additional Past Surgical History / Comment(s): Left knee replacement, right mastectomy with reconstruction, plate in left lower leg and ankle/ankle reconstruction, left hip replacement. Past Anesthesia/Blood Transfusion Reactions: No Reported Reaction Smoking Status: Never smoker - Past Family History Sister(s) Family Medical History: Cancer Additional Family Medical History / Comment(s): Ovarian cancer. Daughter(s) Family Medical History: Cancer, Deep Vein Thrombosis (DVT) Additional Family Medical History / Comment(s): Skin cancer. Mother Family Medical History: Cancer Additional Family Medical History / Comment(s): Throat cancer. Medications and Allergies Home Medications Medication Instructions Recorded Confirmed Type Co Q-10 (Unknown Dose) 1 tab PO DAILY 12/18/22 12/26/24 History Multivitamins, Thera [Multivitamin 1 tab PO DAILY 12/18/22 12/26/24 History (formulary)] [place]-3/Dha/Epa/Fish Oil [Fish Oil 1 each PO DAILY 12/18/22 12/26/24 History 1,000 mg Softgel] Vit C/E/Zn/Coppr/Lutein/Zeaxan 1 each PO DAILY 12/18/22 12/26/24 History [Preservision Areds 2 Softgel] Vitamin E (Unknown Dose) 1 tab PO DAILY 12/18/22 12/26/24 History Calcium Carbonate [Calcium] 600 mg PO DAILY 12/23/24 12/26/24 History Glucosam/Sree-Msm1/C/Jarocho/Bosw 1 each PO DAILY 12/23/24 12/26/24 History [Glucosamine-Chondroitin Tablet] Aspirin 325 mg PO BID #60 tab 12/26/24 Rx HYDROcodone/APAP 7.5-325MG [[place] 1 - 2 tab PO Q6H PRN #32 tab 12/26/24 Rx 7.5-325] Sennosides [Senokot] 2 tab PO DAILY PRN #60 tablet 12/26/24 Rx Allergies Allergy/AdvReac Type Severity Reaction Status Date / Time No Known Allergies Allergy Verified 12/26/24 05:52 Physical Exam Osteopathic Statement: *. No significant issues noted on an osteopathic s tructural exam other than those noted in the History and Physical/Consult. Vitals: Vital Signs Temp Pulse Resp BP Pulse Ox 12/26/24 13:30 84 16 136/65 96 12/26/24 12:31 81 16 153/81 94 L 12/26/24 11:27 81 16 133/64 95 12/26/24 11:00 77 14 144/69 97 12/26/24 10:30 65 14 129/65 94 L 12/26/24 10:00 62 14 121/67 99 12/26/24 09:33 62 14 121/62 97 12/26/24 09:18 64 14 122/66 98 12/26/24 09:03 64 14 121/63 97 12/26/24 08:49 72 14 115/59 97 12/26/24 08:34 73 14 117/62 96 12/26/24 06:41 69 16 158/81 98 12/26/24 06:15 97.0 F L 69 16 165/88 97 Intake and Output 12/25/24 12/26/24 12/26/24 22:59 06:59 14:59 Intake Total 850 151 Output Total 40 Balance 850 111 Intake: IV 850 151 Output: Estimated Blood Loss 40 Other: Weight 95.3 kg
[2024-12-26] MEDS: ASPIRIN 325 MG TAB PO SCH (19:51)
[2024-12-26] MEDS: SENNOSIDES-DOCUSATE SODIUM 1 EACH TAB PO SCH (19:51)
[2024-12-26] MEDS: HYDROcodone/APAP 7.5-325MG 1 EACH TAB PO PRN (19:57)
[2024-12-27 01:44] VITALS: RESP 16; TEMP 97.6
[2024-12-27 04:43] LABS: ALT 23 U/L (4-34); AST 33 U/L (14-36); African American GFR (CKD) >90 (>60 ml/min/1.73 sqM); Albumin 3.5 g/dL (3.5-5.0); Alkaline Phosphatase 75 U/L (38-126); Anion Gap 7 mmol/L; Blood Urea Nitrogen 17 mg/dL (7-17); Calcium 9.3 mg/dL (8.4-10.2); Carbon Dioxide 24 mmol/L (22-30); Chloride 105 mmol/L (98-107); Globulin 3.4 g/dL; Glucose 145 mg/dL (74-99); Non-African American GFR(CKD) 83 (>60 ml/min/1.73 sqM); Potassium 4.2 mmol/L (3.5-5.1); Sodium 136 mmol/L (137-145); Total Bilirubin 0.5 mg/dL (0.2-1.3); Total Protein 6.9 g/dL (6.3-8.2)
[2024-12-27 07:51] VITALS: BP 137/75; PULSE 77
[2024-12-27] MEDS: MULTIVITAMINS, THERA 1 EACH TAB PO SCH (08:17)
[2024-12-27 08:43] LABS: Basophils # (A) 0 X 10*3/uL (0.00-0.10); Basophils % (A) 0 %; Eosinophils # (A) 0 X 10*3/uL (0.04-0.35); Eosinophils % (A) 0 %; HCT 32.1 % (37.2-46.3); HGB 10.6 g/dL (12.0-15.0); Lymphocytes # (A) 0.49 X 10*3/uL (0.90-5.00); Lymphocytes % (A) 6.1 %; MCH 28.7 pg (27.0-32.0); Mean Platelet Volume 10.5 FL (9.5-12.2); Monocytes # (A) 0.95 X 10*3/uL (0.20-1.00); Monocytes % (A) 11.9 %; NRBC Per 100 WBC 0 X 10*3/uL (0.00-0.01); Neutrophils # (A) 6.53 X 10*3/uL (1.80-7.70); Neutrophils % (A) 81.6 %; Platelet Count 187 X 10*3/uL (140-440); RBC 3.69 X 10*6/uL (4.10-5.20); RDW 14.6 % (11.5-14.5)
--- NOTE | 2024-12-27 08:48 | P.PN ---
Progress Note - Text Adequate analgesia. No anesthetic complications.
--- NOTE | 2024-12-27 09:10 | P.PN ---
Subjective Progress Note Date: 12/27/24 84-year-old female with PMH of right breast cancer s/p mastectomy and reconstruction in 2001, total left knee arthroplasty in 2013 and left hip arthroplasty in 2022 presents to the hospital for elective total right knee arthroplasty. We have been consulted for medical management. Patient reports absence of fever, chills, weight loss, chest pain, palpitations, diaphoresis, dyspnea, cough, nausea, vomiting, constipation, diarrhea, abdominal pain, weakness, myalgia, dizziness, headache, and dysuria. Internal medicine was consulted for medical management. 12/27 - She is seen and examined at bedside this morning. REVIEW OF SYSTEMS: Pertinent positives and negatives noted in HPI. PHYSICAL EXAMINATION: Vitals reviewed GENERAL: No acute distress. Well developed, well nourished. HEENT: Pupils are round and equally reacting to light. EOMI. No scleral icterus. Normocephalic, atraumatic. No pharyngeal erythema. No thyromegaly. CARDIOVASCULAR: S1 and S2 present. No murmurs, rubs, or gallops. PULMONARY: Chest is clear to auscultation, no wheezing, rhonchi, or crackles. ABDOMEN: Soft, nontender, nondistended, normoactive bowel sounds. No palpable organomegaly. MUSCULOSKELETAL: No apparent joint swelling and deformities. Vertical bandage covering incision on the right knee dry without erythema or drainage. EXTREMITIES: No apparent cyanosis, clubbing, or pedal edema. NEUROLOGICAL: The patient is alert and oriented x3, Gross neurological examination did not reveal any focal deficits. 5/5 strength bilateral UE and LE. SKIN: No apparent rashes. Data Received Today: Labs: Sodium 136, potassium 4.2, BUN 17, creatinine 0.66, total bilirubin 0.5, AST 33, ALT 23, alkaline phosphatase 75 Imagining: No new imaging today Assessment and plan 84-year-old female with PMH of breast cancer presents to the hospital for elective total right knee arthroplasty. We have been consulted for medical management. #Hypertension, likely secondary to pain -Control pain -Monitor vital signs -Continue outpatient follow-up to rule out essential primary hypertension No known chronic medical conditions #Total right knee arthroplasty -Pain management and DVT prophylaxis per primary surgical team She is currently medically optimized for discharge. We will continue to follow for the duration of her stay. Thank you very much for this consult. DVT ppx: Per the primary surgical team Code status: Full code F: LR at 20 cc/h E: Replete as needed N: Clear liquid advancing to regular Anticipated discharge place: Pending clinical course Anticipated discharge time: Pending clinical course Dictation was produced using [employer] dictation software. please excuse any grammatical, word or spelling errors. Keven French MD PGY-1 IM I saw and evaluated the patient during the garcia and critical portions of this encounter, and discussed the case in detail with the resident author of this note, I agree with the Assessment and Plan, and my changes, if any, are highlighted in blue. Objective - Vital Signs Vital signs: Vital Signs Temp 97.6 F 12/27/24 01:00 Pulse 74 12/27/24 01:00 Resp 16 12/27/24 01:00 BP 138/71 12/27/24 01:00 Pulse Ox 97 12/27/24 01:00 FiO2 Intake & Output 12/26/24 12/27/24 12/27/24 18:59 06:59 18:59 Intake Total 151 Output Total 40 Balance 111 Weight 95.3 kg Intake: IV 151 Output: Estimated Blood Loss 40 Other: Voiding Method Toilet # Voids 2 1 - Labs CBC & Chem 7: 12/27/24 03:02 12/27/24 03:02 Labs: Abnormal Lab Results - Last 24 Hours (Table) 12/27/24 Range/Units 03:02 Sodium 136 L (137-145) mmol/L Glucose 145 H (74-99) mg/dL
--- NOTE | 2024-12-27 11:05 | P.DS ---
Providers Expected date of discharge: 12/27/24 Attending physician: Regino Sharma Consults: 12/26/24 08:43 Consult Physician Routine Consulting Provider: Krystal Gaines Consult Reason/Comments: medical mangement Do you want consulting provider notified?: Yes Primary care physician: Alysa Forde MD - Discharge Diagnosis(es) (1) Osteoarthritis of right knee Current Visit: Yes Status: Acute (2) Status post total right knee replacement Current Visit: Yes Status: Acute Hospital Course: This is an 84-year-old female with known history of degenerative arthritis of the right knee. The patient presented for evaluation as an outpatient. After discussion and consideration patient elects to proceed with total knee arthroplasty. The patient is seen preoperatively by Dr. Sharma and medically cleared for surgery by their primary care physician. Patient is admitted to [facility] on 12/26/2024 for total knee arthroplasty. The procedure is performed without complication or sequelae. The patient is doing well postoperatively. Labs and vital signs are stable on day of discharge. On day of discharge patient's knee incision is healing well. There is minimal erythema. There is no drainage noted at this time. There is minimal soft tissue swelling to the knee. Patient has full foot and ankle motion without difficulty or pain. Calf is soft and nontender to palpation. Neurovascular status to the right lower extremity is intact. Patient is discharged home in good condition. Please see med rec for accurate list of home medications. Plan - Discharge Summary Discharge Rx Participant: No New Discharge Prescriptions: New Aspirin 325 mg PO BID #60 tab Sennosides [Senokot] 2 tab PO DAILY PRN #60 tablet PRN Reason: Constipation HYDROcodone/APAP 7.5-325MG [[place] 7.5-325] 1 - 2 tab PO Q6H PRN #32 tab PRN Reason: Pain Continue Vit C/E/Zn/Coppr/Lutein/Zeaxan [Preservision Areds 2 Softgel] 1 each PO DAILY Vitamin E (Unknown Dose) 1 tab PO DAILY Glucosam/Sree-Msm1/C/Jarocho/Bosw [Glucosamine-Chondroitin Tablet] 1 each PO DAILY Calcium Carbonate [Calcium] 600 mg PO DAILY Multivitamins, Thera [Multivitamin (formulary)] 1 tab PO DAILY [place]-3/Dha/Epa/Fish Oil [Fish Oil 1,000 mg Softgel] 1 each PO DAILY Co Q-10 (Unknown Dose) 1 tab PO DAILY Discharge Medication List Co Q-10 (Unknown Dose) 1 tab PO DAILY 12/18/22 [History] Multivitamins, Thera [Multivitamin (formulary)] 1 tab PO DAILY 12/18/22 [History] [place]-3/Dha/Epa/Fish Oil [Fish Oil 1,000 mg Softgel] 1 each PO DAILY 12/18/22 [History] Vit C/E/Zn/Coppr/Lutein/Zeaxan [Preservision Areds 2 Softgel] 1 each PO DAILY 12/18/22 [History] Vitamin E (Unknown Dose) 1 tab PO DAILY 12/18/22 [History] Calcium Carbonate [Calcium] 600 mg PO DAILY 12/23/24 [History] Glucosam/Sree-Msm1/C/Jarocho/Bosw [Glucosamine-Chondroitin Tablet] 1 each PO DAILY 12/23/24 [History] Aspirin 325 mg PO BID #60 tab 12/26/24 [Rx] HYDROcodone/APAP 7.5-325MG [[place] 7.5-325] 1 - 2 tab PO Q6H PRN #32 tab 12/26/24 [Rx] Sennosides [Senokot] 2 tab PO DAILY PRN #60 tablet 12/26/24 [Rx] Follow up Appointment(s)/Referral(s): [facility] - [facility] Days ([facility] will call you to schedule your in home nursing and physical therapy visits. ) Alysa Forde MD [Primary Care Provider] - 01/04/25 2:30 pm Regino Sharma DO [Doctor of Osteopathic Medicine] - 01/18/25 9:45 am Activity/Diet/Wound Care/Special Instructions: Weightbearing as tolerated with a walker. Leave dressing intact. Dressing may be removed by home care nurse or by patient in 7 days. Then change dressing twice daily until follow up. May shower with initial dressing intact and after removal. If dressing become saturated, please remove. Recommend use of compression stockings daily until follow up to help prevent swelling and blood clots. May remove at night before sleeping. Please take aspirin 325mg twice daily for 30 days to prevent blood clots. Please follow up with [facility] and call with any questions or concerns, . Discharge Disposition: HOME WITH HOME HEALTH SERVICES
== END 2024-12-27 14:23 | disposition home health service (06) ==
LOC: OR 05:37 → 4SSUR 08:30 → OR 12-27 14:23
PROVIDERS: ATTEND Orthopaedic Surgery
DX: M17.11 Unilateral primary osteoarthritis, right knee (principal); I10 Essential (primary) hypertension; G89.18 Other acute postprocedural pain; Z79.82 Long term (current) use of aspirin; Z85.3 Personal history of malignant neoplasm of breast; Z90.11 Acquired absence of right breast and nipple; Z90.710 Acquired absence of both cervix and uterus; Z96.642 Presence of left artificial hip joint; Z79.899 Other long term (current) drug therapy
CPT/HCPCS: 27447; 97161; 97165; 64448; 64474; 80053; 85025; 73560; C1713; C1776; C1751; J2250; J1100; J0690 ×2; J2405; J2003; J3010; J2795; J2704; J2371